=== PATIENT | female | born 1990 | race Caucasian/White ===

== ENCOUNTER 2017-05-22 09:27 | Emergency (ER) | payer OTHER ==
[2017-05-22 09:33] VITALS: BP 117/72; PULSE 89; TEMP 98.1; BMI 28.3
[2017-05-22] MEDS ORDERED: predniSONE 20 MG TABLET (UD) ONE (10:19)
[2017-05-22] MEDS ORDERED: ALBUTEROL SO4 2.5/IPRATROPIUM 0.5 INH SOL 3 ML VIAL.NEB. NEB ONE (10:20)
--- NOTE | 2017-05-22 10:27 | PDOC ---
History of Present Illness - General Chief Complaint: Cold Symptoms Stated Complaint: SICK Time Seen by Provider: 05/22/17 09:46 History Source: Patient Exam Limitations: No Limitations - History of Present Illness Initial Comments: 05/22/17 she came to emergency department today for evaluation of runny nose, head congestion, and moist cough. States has suffered from ALLERGIC rhinitis in the past and feels has having an asthma exacerbation. Has been using her inhaler but cough is persistent. Denies fever, denies purulent mucus, denies any relief with albuterol pump and feels may need some prednisone as has used in the past. Did not Call her physician Severity: reports: mild, moderate Modifying Factors: improves with: albuterol inhaler, albuterol nebulizer Associated Symptoms: reports: chest pain/soreness, cough (x 10 days ), facial pain, fever/chills, headache Past History - Travel Traveled outside of the country in the last 30 days: No Close contact w/someone who was outside of country & ill: No - Past Medical History Allergies/Adverse Reactions: Allergies Allergy/AdvReac Type Severity Reaction Status Date / Time avocado Allergy Verified 05/22/17 09:33 WATERMELON Allergy Severe Swelling Uncoded 05/22/17 09:33 Home Medications: Ambulatory Orders Albuterol 0.083% Nebulizer Annabella [Ventolin 0.083% Nebulizer Soln -] 1 neb NEB Q4H PRN #30 vial 05/22/17 Prednisone [Deltasone -] 20 mg PO BID #8 tablet 05/22/17 Asthma: Yes Cancer: No Cardiac Disorders: No Diabetes: No HTN: No Seizures: No Thyroid Disease: No - Psycho/Social/Smoking Cessation Hx Anxiety: No Suicidal Ideation: No Smoking History: Never smoked Have you smoked in the past 12 months: No Hx Alcohol Use: No Drug/Substance Use Hx: No Substance Use Type: None Hx Substance Use Treatment: No Respiratory Specific PMHX - Complaint Specific PMHX Pneumonia: No Review of Systems - Review of Systems Able to Perform ROS?: Yes Is the patient limited [place] proficient: Yes Constitutional: Yes: Symptoms Reported, See HPI, Loss of Appetite, Malaise. No : Fever HEENTM: Yes: Symptoms Reported, See HPI, Nose Congestion Respiratory: Yes: Symptoms reported, See HPI, Cough, Shortness of Breath, Wheezing : Yes: Symptoms Reported Musculoskeletal: Yes: Symptoms Reported Integumentary: Yes: Symptoms Reported, See HPI All Other Systems: Reviewed and Negative *Physical Exam - Vital Signs Last Vital Signs Temp Pulse Resp BP Pulse Ox 98.1 F 89 20 117/72 100 05/22/17 09:30 05/22/17 09:30 05/22/17 09:30 05/22/17 09:30 05/22/17 09:30 - Physical Exam General Appearance: Yes: Nourished, Appropriately Dressed, Apparent Distress, Mild Distress HEENT: positive: [place], Normal ENT Inspection, TMs Normal (congested but landmarks easily visualized ), Pharynx Normal (no redness, swelling or exudate noted, some posterior sinus drainage that was clear), Rhinorrhea, Sinus Tenderness Neck: positive: Supple. negative: Tender, Lymphadenopathy (R), Lymphadenopathy (L) Respiratory/Chest: positive: Lungs Clear, Normal Breath Sounds, Wheezing (but coarse ) Musculoskeletal: positive: Normal Inspection Extremity: positive: Normal Capillary Refill, Normal Inspection, Normal Range of Motion Integumentary: positive: Dry, Warm, Pale Neurologic: positive: tenoner operator II-XII NML intact, Fully Oriented, Alert, Normal Mood/ Affect, Normal Response, Motor Strength 5/5 Progress Note - Progress Note Progress Note: Much improved after 60 mg of prednisone and 2 DuoNeb, *DC/Admit/Observation/Transfer Diagnosis at time of Disposition: Allergic rhinitis Qualifiers: Chronicity: acute Allergic rhinitis trigger: unspecified Allergic rhinitis seasonality: unspecified seasonality Qualified Code(s): J30.9 - Allergic rhinitis, unspecified - Discharge Dispostion Disposition: HOME Condition at time of disposition: Stable Admit: No - Prescriptions Prescriptions: Prednisone [Deltasone -] 20 mg PO BID #8 tablet Albuterol 0.083% Nebulizer Annabella [Ventolin 0.083% Nebulizer Soln -] 1 neb NEB Q4H PRN #30 vial PRN Reason: Cough - Patient Instructions Printed Discharge Instructions: DI for Allergic Rhinitis Additional Instructions: Rest, drink lots of fluids: Teas, water, soups Saltwater gargles. Consider humidifier in room at night Steamy showers/seem to face break up mucus Avoid contact with allergens, exposure to pollens, close windows on a windy day Lots of handwashing and good hygiene Continue [id number] medications for symptomatic relief- may use allergic eyedrops for itching I Continue antihistamines daily until pollen season is over; Zyrtec, Claritin, Michelle during the daytime and Benadryl at nighttime as will make sleepy Tylenol or Motrin for fever and pain Continue nebulizers every 4-6 hours for 2 days then as needed Prednisone 40 mg daily for the next 4 days Followup with private physician in one to 2 days Consider following up with an spring assembler supervisor/jewelry sales for skin testing and possible allergy shots Return to emergency department for worsened symptoms, fevers, dehydration - Post Discharge Activity Work/School Note: Back to Work
== END 2017-05-22 11:12 | disposition home or self-care (01) ==
LOC: JERFT 09:27
PROC: 3E0F7GC Introduction of Other Therapeutic Substance into Respiratory Tract, Via Natural or Artificial Opening (ICD-10-PCS; principal; 2017-05-22)
PROC: 3E0F7GC Introduction of Other Therapeutic Substance into Respiratory Tract, Via Natural or Artificial Opening (ICD-10-PCS; 2017-05-22)
DX: J30.9 Allergic rhinitis, unspecified (principal); J00 Acute nasopharyngitis [common cold]; J30.89 Other allergic rhinitis; J45.909 Unspecified asthma, uncomplicated
CPT/HCPCS: 94640; 99281-25

== ENCOUNTER 2017-06-04 09:43 | Emergency (ER) | payer OTHER ==
[2017-06-04 09:50] VITALS: BP 120/79; PULSE 75; TEMP 97.9; BMI 27.8
--- NOTE | 2017-06-04 10:19 | PDOC ---
History of Present Illness - General Chief Complaint: Cold Symptoms Stated Complaint: LIGHTHEADED Time Seen by Provider: 06/04/17 09:55 History Source: Patient Exam Limitations: No Limitations - History of Present Illness Initial Comments: 06/04/17 10:15 26 YR FEMALE HISTORYOF ASTHMA presents with cough and post nasal drip. no fever no SOB no chest pain. Past History - Past Medical History Allergies/Adverse Reactions: Allergies Allergy/AdvReac Type Severity Reaction Status Date / Time avocado Allergy Verified 06/04/17 09:50 WATERMELON Allergy Severe Swelling Uncoded 06/04/17 09:50 Home Medications: Ambulatory Orders Benzonatate [Tessalon Pearls -] 100 mg PO TID PRN #21 capsule 06/04/17 Fluticasone Prop 0.05% Nasal [Flonase -] 1 - 2 spray NS DAILY #1 spray.pump 03/18 Asthma: Yes Cancer: No Cardiac Disorders: No Diabetes: No HTN: No Seizures: No Thyroid Disease: No - Psycho/Social/Smoking Cessation Hx Anxiety: No Suicidal Ideation: No Smoking History: Never smoked Have you smoked in the past 12 months: No Hx Alcohol Use: No Drug/Substance Use Hx: No Substance Use Type: None Hx Substance Use Treatment: No Respiratory Specific PMHX - Complaint Specific PMHX Pneumonia: No *Physical Exam - Vital Signs Last Vital Signs Temp Pulse Resp BP Pulse Ox 97.9 F 75 18 120/79 100 06/04/17 09:48 06/04/17 09:48 06/04/17 09:48 06/04/17 09:48 06/04/17 09:48 - Physical Exam General Appearance: Yes: Nourished, Appropriately Dressed HEENT: positive: EOMI, [place], TMs Normal Neck: positive: Supple Respiratory/Chest: positive: Lungs Clear, Normal Breath Sounds. negative: Chest Tender, Crackles, Rales, Wheezing, Hyperresonant Cardiovascular: positive: Regular Rhythm, Regular Rate *DC/Admit/Observation/Transfer Diagnosis at time of Disposition: Allergic rhinitis Qualifiers: Chronicity: chronic Allergic rhinitis trigger: pollen Allergic rhinitis seasonality: seasonal Qualified Code(s): J30.1 - Allergic rhinitis due to pollen - Discharge Dispostion Disposition: HOME Condition at time of disposition: Good - Prescriptions Prescriptions: Fluticasone Prop 0.05% Nasal [Flonase -] 1 - 2 spray NS DAILY #1 spray.pump Benzonatate [Tessalon Pearls -] 100 mg PO TID PRN #21 capsule PRN Reason: Cough - Referrals Referrals: Sheela Schmitt [Primary Care Provider] - Stuart Prieto MD [Staff Physician] - Eder [place] MD [Staff Physician] - - Patient Instructions Additional Instructions: drink pleanty of water use flonase as directed take tessalon for cough as needed use your ventolin inhaler for any wheezing follow with the ENT doctor or with the pulmonary doctor Dr. Prieto for follow up and management of your asthma symptoms
== END 2017-06-04 10:28 | disposition home or self-care (01) ==
LOC: JERFT 09:43
DX: J30.89 Other allergic rhinitis (principal)
CPT/HCPCS: 99281-25

== ENCOUNTER 2018-04-25 16:18 | Emergency (ER) | payer OTHER ==
[2018-04-25 16:29] VITALS: BMI 29.2
--- NOTE | 2018-04-25 16:31 | PDOC ---
Rapid Medical Evaluation Chief Complaint: Pain, Acute Time Seen by Provider: 04/25/18 16:25 Medical Evaluation: Allergies Allergy/AdvReac Type Severity Reaction Status Date / Time avocado Allergy Verified 04/25/18 16:24 WATERMELON Allergy Severe Swelling Uncoded 04/25/18 16:24 04/25/18 16:26 I have performed a brief in-person evaluation of this patient. The patient presents with a chief complaint of: Pelvic pain w/ fever of 104.3 since yesterday, took tylenol. No sig pmhx Pertinent physical exam findings:Febrile to w/ HR of 130 w/ sig ttp lower abd diffusely I have ordered the following: Labs The patient will proceed to the ED for further evaluation 04/25/18 16:29 Discharge Disposition - Diagnosis Abdominal pain Qualifiers: Abdominal location: unspecified location Qualified Code(s): R10.9 - Unspecified abdominal pain - Referrals Referrals: Sheela Schmitt [Primary Care Provider] - - Patient Instructions - Post Discharge Activity
[2018-04-25 17:00] LABS: HEMATOCRIT 36.8 % (32.4-45.2); HEMOGLOBIN 12.3 GM/dL (10.7-15.3); MCH 31.2 pg (25.7-33.7); MCHC 33.3 g/dl (32.0-36.0); MEAN CELL VOLUME 93.8 fl (80-96); MEAN PLT VOLUME 8.6 fl (7.5-11.1); PLATELET COUNT 284 K/MM3 (134-434); RBC 3.93 M/mm3 (3.60-5.2); RDW 13.7 % (11.6-15.6); WHITE BLOOD COUNT 22.7 K/mm3 (4.0-10.0)
[2018-04-25] MEDS ORDERED: SODIUM CHLORIDE 1,000 ML IV STA ×2 (17:05→19:47)
[2018-04-25] MEDS ORDERED: ACETAMINOPHEN 1000 MG/100 ML VIAL (NON FORMULARY) IVPB ONE (17:06)
--- NOTE | 2018-04-25 17:09 | PDOC ---
History of Present Illness <Martha Chacon - Last Filed: 04/25/18 18:05> - History of Present Illness Initial Comments: 04/25/18 18:09 The patient is a 27 year old female with no significant PMH who presents for evaluation of lower abdominal pain and fevers. The patient reports a 1 day history of fevers to 104 with associated lower abdominal pain that she describes as a pressure. She reports worsening abdominal pain and generalized body aches prompting her presentation to the ED for further evaluation. She notes increased frequency in urination as well as dysuria, but otherwise denies SOB, chest pain, nausea, vomiting, vaginal bleeding, vaginal discharge, or changes with bowel movements. <AmparoPablo - Last Filed: 04/25/18 23:33> - General Chief Complaint: Pain, Acute Stated Complaint: ABD PAIN Time Seen by Provider: 04/25/18 16:25 Past History <Martha Chacon - Last Filed: 04/25/18 18:05> - Past Medical History Asthma: Yes Cancer: No Cardiac Disorders: No COPD: No Diabetes: No HTN: No Seizures: No Thyroid Disease: No - Immunization History Immunization Up to Date: Yes - Suicide/Smoking/Psychosocial Hx Smoking History: Never smoked Have you smoked in the past 12 months: No Hx Alcohol Use: No Drug/Substance Use Hx: No Substance Use Type: None Hx Substance Use Treatment: No <Pablo Christensen - Last Filed: 04/25/18 23:33> - Past Medical History Allergies/Adverse Reactions: Allergies Allergy/AdvReac Type Severity Reaction Status Date / Time avocado Allergy Verified 04/25/18 16:24 WATERMELON Allergy Severe Swelling Uncoded 04/25/18 16:24 Home Medications: Ambulatory Orders Doxycycline Hyclate 100 mg PO BID #20 tablet 04/25/18 Review of Systems - Review of Systems Comments:: 04/25/18 18:57 Constitutional: Fevers, Body aches, Fatigue HEENT: No Rhinorrhea, nasal congestion, visual changes Cardiovascular: No chest pain, syncope, palpitations, lightheadedness Respiratory: No Cough, SOB, Hemoptysis, Gastrointestinal: Abdominal pain. No Nausea, Vomiting, Constipation, Diarrhea, Melena Genitourinary: Dysuria, Increased Frequency. No Urgency, Hesitancy, Hematuria, Flank pain, Vaginal bleeding, Vaginal discharge Musculoskeletal: No Myalgia, arthralgia Skin: No rashes, itching, bruising, pallor Neurologic: No Headache, Dizziness, Numbness, Weakness, or Tingling Psychiatric: No Hallucinations. No SI or HI <Pablo Christensen - Last Filed: 04/25/18 23:33> *Physical Exam - Vital Signs Last Vital Signs Temp Pulse Resp BP Pulse Ox 100.1 F H 132 H 20 96/51 100 04/25/18 16:25 04/25/18 16:25 04/25/18 16:25 04/25/18 16:25 04/25/18 16:25 <HernanMartha tadeo - Last Filed: 04/25/18 18:05> - Vital Signs Last Vital Signs Temp Pulse Resp BP Pulse Ox 100.1 F H 132 H 20 96/51 100 04/25/18 16:25 04/25/18 16:25 04/25/18 16:25 04/25/18 16:25 04/25/18 16:25 - Physical Exam Comments: 04/25/18 18:59 General Appearance: Nourished. No Apparent Distress HEENT: EOMI, [place]. No Pharyngeal Erythema, Tonsillar Exudate, Tonsillar Erythema Neck: No Cervical Lymphadenopathy Respiratory/Chest: Lungs Clear, Normal Breath Sounds. No Crackles, Rales, Rhonchi, Wheezing Cardiovascular: Regular Rhythm, Regular Rate. No Murmur, Gallops, Rubs Gastrointestinal/Abdominal: Normal Bowel Sounds, Soft. Tenderness to palpation in the suprapubic and RLQ regions. No Guarding, Rebound, Genital Exam: Normal external exam, white discharged noted. No CMT. Right adenexal tenderness noted on exam. Musculoskeletal: No CVA Tenderness Extremity: Normal Capillary Refill Integumentary: Normal Color, Dry, Warm Neurologic: Fully Oriented, Alert, Normal Mood/Affect, Normal Response, <Pablo Christensen - Last Filed: 04/25/18 23:33> ED Treatment Course - LABORATORY CBC & Chemistry Diagram: 04/25/18 16:51 04/25/18 16:51 - ADDITIONAL ORDERS Additional order review: Laboratory Results 04/25/18 04/25/18 04/25/18 16:51 16:51 16:51 Sodium 136 Potassium 3.7 Chloride 103 Carbon Dioxide 25 Anion Gap 8 BUN 12 Creatinine 0.9 Creat Clearance w eGFR > 60 Random Glucose 121 H Calcium 8.8 Total Bilirubin 0.5 D AST 15 ALT 12 Alkaline Phosphatase 113 Total Protein 7.5 Albumin 4.1 Lipase 95 Urine Color Ltyellow Urine Appearance Clear Urine pH 8.0 D Ur Specific [place] 1.010 Urine Protein Negative Urine Glucose (UA) Negative Urine Ketones Negative Urine Blood 2+ H Urine Nitrite Negative Urine Bilirubin Negative Urine Urobilinogen Negative Ur Leukocyte Esterase 1+ H Urine WBC (Auto) 7 Urine RBC (Auto) 6 Ur Epithelial Cells Few Urine HCG, Qual Negative 04/25/18 16:51 RBC 3.93 D MCV 93.8 MCHC 33.3 RDW 13.7 MPV 8.6 D Neutrophils % No Result Required. Lymphocytes % No Result Required. - Medications Given in the ED: ED Medications Discontinued Medications Generic Name Dose Route Start Last Admin Trade Name Freq PRN Reason Stop Dose Admin Acetaminophen 1,000 mg 04/25/18 17:06 04/25/18 17:23 Ofirmev Injection - IVPB 04/25/18 17:07 1,000 mg ONCE ONE Administration Sodium Chloride 1,000 mls @ 1,000 mls/hr 04/25/18 17:05 04/25/18 17:23 Normal Saline - IV 04/25/18 18:04 1,000 mls/hr ASDIR STA Administration <Martha Chacon - Last Filed: 04/25/18 18:05> - LABORATORY CBC & Chemistry Diagram: 04/25/18 16:51 04/25/18 16:51 <Pablo Christensen - Last Filed: 04/25/18 23:33> *DC/Admit/Observation/Transfer <Martha Chacon - Last Filed: 04/25/18 18:05> - Discharge Dispostion Decision to Admit order: No <Pablo Christensen - Last Filed: 04/25/18 23:33> Diagnosis at time of Disposition: Abdominal pain Qualifiers: Abdominal location: unspecified location Qualified Code(s): R10.9 - Unspecified abdominal pain - Discharge Dispostion Disposition: HOME Condition at time of disposition: Stable - Prescriptions Prescriptions: Doxycycline Hyclate 100 mg PO BID #20 tablet - Referrals Referrals: Sheela Schmitt [Primary Care Provider] - - Patient Instructions Printed Discharge Instructions: DI for Abdominal Pain-Adult Additional Instructions: Please return to the ER if you experience concerning or worsening symptoms including worsening abdominal pain, fevers, chills, vomiting. Your lab results were normal here in the ER. We have sent a prescription to your pharmacy that you should take twice a day for the next 10 days. It is important that you call to schedule a follow up appointment with your primary care provider within 2-3 days to discuss your ER visit and further management of your symptoms. - Post Discharge Activity
[2018-04-25 17:23] LABS: URINE APPEARANCE CLEAR; URINE BILIRUBIN NEGATIVE (<2.0 mg/dL); URINE COLOR LTYELLOW; URINE GLUCOSE (UA) NEGATIVE (NEGATIVE); URINE KETONE NEGATIVE (NEGATIVE); URINE NITRITE NEGATIVE (NEGATIVE); URINE PROTEIN NEGATIVE (NEGATIVE); URINE UROBILINOGEN NEGATIVE mg/dL (0.2-1.0)
[2018-04-25 17:25] LABS: HCG,QUALITATIVE URINE NEGATIVE
[2018-04-25 17:26] LABS: URINE LEUK ESTERASE 1+ (NEGATIVE)
[2018-04-25 17:28] LABS: EPI CELLS FEW /HPF (FEW)
[2018-04-25 17:38] LABS: ALBUMIN 4.1 g/dl (3.4-5.0); ALK PHOS 113 U/L (45-117); ANION GAP 8 (8-16); BILIRUBIN,TOTAL 0.5 mg/dL (0.2-1.0); BLOOD UREA NITROGEN 12 mg/dL (7-18); CALCIUM 8.8 mg/dL (8.5-10.1); CHLORIDE 103 mmol/L (98-107); CO2 25 mmol/L (21-32); CREATININE 0.9 mg/dL (0.55-1.02); GLUCOSE,RANDOM 121 mg/dL (74-106); POTASSIUM 3.7 mmol/L (3.5-5.1); SGOT/AST 15 U/L (15-37); SGPT/ALT 12 U/L (12-78); SODIUM 136 mmol/L (136-145); TOT PROT 7.5 g/dl (6.4-8.2)
--- NOTE | 2018-04-25 18:09 | PDOC ---
Attending Attestation - Resident Resident Name: Pablo Christesnen - ED Attending Attestation I have performed the following: I have examined & evaluated the patient, The case was reviewed & discussed with the resident, I agree w/resident's findings & plan, Exceptions are as noted - HPI HPI: 04/25/18 18:15 The patient is a 27 year old female with no significant past medical history who presents to the emergency department for evaluation of lower abdominal pain and fever. The patient reports a 1 day history of worsening lower abdominal pain. She reports suprapubic pain radiating to her RLQ. The patient reports having a fever with T Max of 104 yesterday with associated generalized body aches. She also reports associated symptoms of dysuria and urinary frequency. She denies any vaginal bleeding or abnormal discharge. The patient reports taking tylenol with mild alleviation to symptoms. Pt is sexually active with her only. The patient denies chest pain, shortness of breath, headache, and dizziness. Denies chills, nausea, vomiting, diarrhea, constipation, urinary urgency, and hematuria. Allergies: Avocado, watermelon Past surgical history: , T/A Social history: No reported cigarette, alcohol, or drug use. PCP: Dr. Sheela Schmitt ([phone]) - Physicial Exam PE: 04/25/18 18:16 GENERAL: Awake, alert, and fully oriented, in no acute distress. HEAD: No signs of trauma EYES: PERRLA, EOMI, sclera anicteric, conjunctiva clear ENT: Auricles normal inspection, hearing grossly normal, nares patent, oropharynx clear without exudates. Moist mucosa NECK: Normal ROM, supple, no lymphadenopathy, JVD, or masses LUNGS: Breath sounds equal, clear to auscultation bilaterally. No wheezes, and no crackles HEART: Regular rate and rhythm, normal S1 and S2, no murmurs, rubs or gallops ABDOMEN: Soft, +RLQ ttp, normoactive bowel sounds. No guarding, no rebound. No masses. No CVAT PELVIC: white thick DC in vaginal vault, +R adnexal ttp, negative CMT, no L adnexal ttp EXTREMITIES: Normal range of motion, no edema. No clubbing or cyanosis. No cords , erythema, or tenderness BACK: No midline spinal tenderness in cervical/thoracic/lumbar region NEUROLOGICAL: Normal speech, cranial nerves intact, negative pronator drift, 5/ 5 strength in all 4 extremities, normal sensation to light touch in all 4 extremities, normal cerebellar exam, normal gait, normal reflexes and tone SKIN: Warm, Dry, normal turgor, no rashes or lesions noted. - Medical Decision Making 04/25/18 18:08 27yo F presents to the ED with 1 day of suprapubic and RLQ pain a/w fevers. Vitals remarkable for fever and tachycardia. Exam with RLQ and R adnexal ttp. DDx wide and includes but not limited to appy vs TOA vs PID vs pyelonephritis. Plan: -labs -antipyretics -TVUS -CTAP -pain control -reassess
[2018-04-25 18:46] LABS: PLATELET ESTIMATE ADEQUATE
[2018-04-25 19:50] VITALS: BP 90/52; PULSE 84; TEMP 98.3
[2018-04-25] MEDS ORDERED: AZITHROMYCIN 1 GM PACKET PO ONE (23:18)
[2018-04-25] MEDS ORDERED: DOXYCYCLINE HYCLATE 100 MG CAPSULE PO ONE ×2 (23:19→23:25)
[2018-04-25] MEDS ORDERED: cefTRIAXone SODIUM 1 GM VIAL ONE (23:26)
[2018-04-25] MEDS ORDERED: LIDOCAINE HCL 1%, 10 MG/ML (20ML VIAL) ONE (23:27)
[2018-04-25] MEDS ORDERED: AZITHROMYCIN 250 MG TABLET ONE (23:36)
== END 2018-04-25 23:40 | disposition home or self-care (01) ==
LOC: JER 16:18
PROC: 3E0337Z Introduction of Electrolytic and Water Balance Substance into Peripheral Vein, Percutaneous Approach (ICD-10-PCS; principal; 2018-04-25)
PROC: 3E033NZ Introduction of Analgesics, Hypnotics, Sedatives into Peripheral Vein, Percutaneous Approach (ICD-10-PCS; 2018-04-25)
PROC: 3E02329 Introduction of Other Anti-infective into Muscle, Percutaneous Approach (ICD-10-PCS; 2018-04-25)
DX: N73.8 Other specified female pelvic inflammatory diseases (principal)
CPT/HCPCS: 36415; 74177-TC; 76856-TC; 80053; 81003; 81015; 83690; 84703; 85025; 87491; 87591; 96361; 96372; 96374; 99283-25; J0131; J7030

== ENCOUNTER 2019-10-13 17:54 | Emergency (ER) | payer OTHER ==
[2019-10-13 18:04] VITALS: TEMP 98; BMI 31.7
--- NOTE | 2019-10-13 18:04 | PDOC ---
Rapid Medical Evaluation Time Seen by Provider: 10/13/19 18:01 Medical Evaluation: Allergies Allergy/AdvReac Type Severity Reaction Status Date / Time avocado Allergy Verified 04/25/18 16:24 WATERMELON Allergy Severe Swelling Uncoded 04/25/18 16:24 10/13/19 18:01 I have performed a brief in-person evaluation of this patient. The patient presents with a chief complaint of: , 17 weeks sharp pain to L abdomen, + discharge, denies bleeding, LMP 06/15 Pertinent physical exam findings: LLQ tenderness I have ordered the following: labs, urine, US The patient will proceed to the ED for further evaluation. Discharge Disposition - Diagnosis Abdominal pain during - Referrals - Patient Instructions - Post Discharge Activity
[2019-10-13] MEDS ORDERED: ACETAMINOPHEN 325 MG TABLET (FP) PO ONE (18:17)
[2019-10-13] MEDS ORDERED: ACETAMINOPHEN 325 MG TABLET (FP) ONE (18:24)
--- NOTE | 2019-10-13 18:29 | PDOC ---
History of Present Illness - General Chief Complaint: Pain Stated Complaint: 17 WKS /PAIN Time Seen by Provider: 10/13/19 18:01 History Source: Patient Exam Limitations: No Limitations Past History - Past Medical History Allergies/Adverse Reactions: Allergies Allergy/AdvReac Type Severity Reaction Status Date / Time avocado Allergy Verified 10/13/19 18:04 WATERMELON Allergy Severe Swelling Uncoded 10/13/19 18:04 Home Medications: Ambulatory Orders Doxycycline Hyclate 100 mg PO BID #20 tablet 04/25/18 Asthma: Yes Cancer: No Cardiac Disorders: No COPD: No Diabetes: No HTN: No Seizures: No Thyroid Disease: No - Immunization History Immunization Up to Date: Yes - Psycho Social/Smoking Cessation Hx Smoking History: Never smoked Have you smoked in the past 12 months: No Hx Alcohol Use: No Drug/Substance Use Hx: No Substance Use Type: None Hx Substance Use Treatment: No *Physical Exam - Vital Signs Last Vital Signs Temp Pulse Resp BP Pulse Ox 98 F 93 H 18 99/56 L 100 10/13/19 18:01 10/13/19 18:01 10/13/19 18:01 10/13/19 18:01 10/13/19 18:01 - Physical Exam General Appearance: No: Apparent Distress Respiratory/Chest: positive: Lungs Clear, Normal Breath Sounds. negative: Respiratory Distress Cardiovascular: positive: Regular Rhythm, Regular Rate, S1, S2. negative: Murmur Female Pelvic Exam: positive: adnexal tenderness (mild along L side) Gastrointestinal/Abdominal: positive: Tender (mild along LLQ), Soft. negative: Distended, Guarding Musculoskeletal: negative: CVA Tenderness Neurologic: positive: Alert Medical Decision Making - Medical Decision Making 29 y/o F currently 17 weeks 4 days presents with sharp LLQ abd pain x 1 week. Has tried Tylenol without relief of pain. Denies fever, sob, cp, n/v/d, dysuria, hematuria, vaginal bleeding. Patient's OB is Dr. Cunha from [address] [place] [address]; last eval was Sep 25 during which ultrasound was done and everything was normal. Denies prior abdominal surgeries Less likely ectopic, miscarriage Consider round ligament pain? UTI? Plan: UA, Pelvic ultrasound, Tylenol 10/13/19 18:29 UA negative Pending results of ultrasound Patient signed out to [facility] 10/13/19 18:57 Discharge - Discharge Information Problems reviewed: Yes Clinical Impression/Diagnosis: Abdominal pain during Qualifiers: Trimester: second trimester Qualified Code(s): O26.892 - Other specified related conditions, second trimester; R10.9 - Unspecified abdominal pain - Follow up/Referral - Patient Discharge Instructions - Post Discharge Activity
[2019-10-13 18:41] LABS: EPI CELLS 5.3 /HPF (0-5/HPF); HYALINE CASTS 1 /lpf (0-8); URINE APPEARANCE CLEAR; URINE BACTERIA 70.5 /hpf (NEGATIVE); URINE BILIRUBIN NEGATIVE (NEGATIVE); URINE COLOR YELLOW; URINE GLUCOSE (UA) NEGATIVE (NEGATIVE); URINE KETONE NEGATIVE (NEGATIVE); URINE LEUK ESTERASE 2+ (NEGATIVE); URINE NITRITE NEGATIVE (NEGATIVE); URINE PROTEIN NEGATIVE (NEGATIVE); URINE RBC 2 /hpf (0-4); URINE UROBILINOGEN 0.2 mg/dL (0.2-1.0); URINE WBC 4 /hpf (0-5)
--- NOTE | 2019-10-13 19:37 | PDOC ---
*Physical Exam - Vital Signs Last Vital Signs Temp Pulse Resp BP Pulse Ox 98 F 93 H 18 99/56 L 100 10/13/19 18:01 10/13/19 18:01 10/13/19 18:01 10/13/19 18:01 10/13/19 18:01 - Physical Exam General Appearance: Yes: Appropriately Dressed Cardiovascular: positive: Regular Rate Gastrointestinal/Abdominal: positive: Normal Bowel Sounds, Soft, Other (gravid abdomen, left adnexal tenderness) Extremity: positive: Normal Capillary Refill, Normal Inspection, Normal Range of Motion Integumentary: positive: Normal Color, Dry, Warm Neurologic: positive: Fully Oriented, Alert, Normal Mood/Affect ED Treatment Course - ADDITIONAL ORDERS Additional order review: Laboratory Results 10/13/19 18:25 Urine Color Yellow Urine Appearance Clear Urine pH 6.0 D Ur Specific [place] 1.014 Urine Protein Negative Urine Glucose (UA) Negative Urine Ketones Negative Urine Blood Trace Urine Nitrite Negative Urine Bilirubin Negative Urine Urobilinogen 0.2 Ur Leukocyte Esterase 2+ H Urine WBC (Auto) 4 Urine RBC (Auto) 2 Urine Casts (Auto) 1 U Epithel Cells (Auto) 5.3 Urine Bacteria (Auto) 70.5 - Medications Given in the ED: ED Medications Discontinued Medications Generic Name Dose Route Start Last Admin Trade Name Freq PRN Reason Stop Dose Admin Acetaminophen 975 mg 10/13/19 18:17 10/13/19 18:31 Tylenol - PO 10/13/19 18:18 975 mg ONCE ONE Administration Medical Decision Making - Medical Decision Making 10/13/19 19:54 UA + 2 leuks with bacteria. will empirically treat. patient has an appt with ingot caster next week, advised to follow up . denies urinary symptoms patient reports Dyspareunia, advised for pelvic rest until cleared by OB Discharge - Discharge Information Problems reviewed: Yes Clinical Impression/Diagnosis: Abdominal pain during Qualifiers: Trimester: second trimester Qualified Code(s): O26.892 - Other specified related conditions, second trimester UTI (urinary tract infection) Qualifiers: Urinary tract infection type: acute cystitis Disposition: HOME - Additional Discharge Information Prescriptions: Cephalexin Monohydrate [Keflex -] 500 mg PO BID #14 capsule - Follow up/Referral - Patient Discharge Instructions Patient Printed Discharge Instructions: Urinary Tract Infection Additional Instructions: drink plenty of fluids take cephalexin as prescribed, follow up with your doctor as soon as possible. - Post Discharge Activity Work/Back to School Note: Back to Work
[2019-10-13 20:06] VITALS: BP 109/64; PULSE 86
== END 2019-10-13 20:00 | disposition home or self-care (01) ==
LOC: JER 17:54
DX: O26.892 Other specified pregnancy related conditions, second trimester (principal); O23.12 Infections of bladder in pregnancy, second trimester; N30.00 Acute cystitis without hematuria; Z3A.17 17 weeks gestation of pregnancy; Z91.018 Allergy to other foods
CPT/HCPCS: 76815-TC; 81003; 99283-25

== ENCOUNTER 2019-12-09 11:08 | Emergency (ER) | payer OTHER ==
[2019-12-09 11:27] VITALS: BMI 32.3
[2019-12-09] MEDS ORDERED: AZITHROMYCIN 250 MG TABLET PO ONE (12:46)
[2019-12-09] MEDS ORDERED: AZITHROMYCIN 250 MG TABLET ONE (12:53)
--- NOTE | 2019-12-09 13:00 | PDOC ---
History of Present Illness - General Chief Complaint: Cold Symptoms Stated Complaint: COLD SYS Time Seen by Provider: 12/09/19 11:46 History Source: Patient Exam Limitations: No Limitations Past History - Past Medical History Allergies/Adverse Reactions: Allergies Allergy/AdvReac Type Severity Reaction Status Date / Time avocado Allergy Severe Swelling Verified 11/16/19 16:09 [place] Allergy Severe Swelling Uncoded 11/16/19 16:09 Home Medications: Ambulatory Orders Vit 93/Iron Fum/Folic [ Formula Tablet] 1 each PO DAILY Azithromycin [Zithromax 250mg Tablets -] 250 mg PO UTDICT #6 tab 12/09/19 Asthma: Yes Cancer: No Cardiac Disorders: No COPD: No Diabetes: No HTN: No Seizures: No Thyroid Disease: No - Immunization History Immunization Up to Date: Yes - Psycho Social/Smoking Cessation Hx Smoking History: Never smoked Have you smoked in the past 12 months: No Information on smoking cessation initiated: No Hx Alcohol Use: No Drug/Substance Use Hx: No Substance Use Type: None Hx Substance Use Treatment: No Respiratory Specific PMHX - Complaint Specific PMHX Hx Pneumonia: No *Physical Exam - Vital Signs Last Vital Signs Temp Pulse Resp BP Pulse Ox 98.3 F 96 H 17 91/53 L 99 12/09/19 11:20 12/09/19 11:20 12/09/19 11:20 12/09/19 11:20 12/09/19 11:20 - Physical Exam General Appearance: No: Apparent Distress HEENT: positive: Nasal Congestion. negative: Muffled/Hoarse voice, Pharyngeal Erythema, Tonsillar Exudate, Tonsillar Erythema, Rhinorrhea, Sinus Tenderness Respiratory/Chest: positive: Lungs Clear, Normal Breath Sounds. negative: Respiratory Distress Cardiovascular: positive: Regular Rhythm, Regular Rate, S1, S2. negative: Murmur Gastrointestinal/Abdominal: positive: Other (gravid abdomen) Integumentary: positive: Normal Color Neurologic: positive: Alert ED Treatment Course - RADIOLOGY Radiology Studies Ordered: Category Date Time Status CHEST PA & LAT [RAD] Stat Radiology 12/09/19 12:04 Taken Medical Decision Making - Medical Decision Making 29 y/o F hx of asthma, currently 25 weeks presents with fever, cough, congestion, sore throat, body aches x 1 week. States fever had stopped and that started again last night (states it was around 103). Patient took Tylenol last night. No antipyretics were taken today. +CP only with coughing. Denies sob, abd pain, n/v/d, vaginal bleeding, recent travel. Flu negative CXR wet read negative D/W Dr. Arango - given duration of sxs and fever from yesterday, will start on z- anita Given first dose here Will go to L&D for FHR 12/09/19 12:56 Discharge - Discharge Information Problems reviewed: Yes Clinical Impression/Diagnosis: Viral URI Condition: Poor - Admission No - Additional Discharge Information Prescriptions: Azithromycin [Zithromax 250mg Tablets -] 250 mg PO UTDICT #6 tab Prescription Drug Monitoring Program (I-STOP) results: I-STOP not reviewed - Follow up/Referral - Patient Discharge Instructions Patient Printed Discharge Instructions: DI for Viral Upper Respiratory Infection -- Adult Additional Instructions: Thank you for choosing [facility]. It was a pleasure taking care of you. Recommend rest, hydration You may try saline nebs and humidifier at home Take antibiotics in case this is developing bacterial infection Follow-up with your doctor in 2 days Return to the Emergency Department if your symptoms worsen or persist or have other concerning symptoms. - Post Discharge Activity
[2019-12-09 13:31] VITALS: BP 91/51; PULSE 98; TEMP 98.6
--- NOTE | 2019-12-10 11:52 | EKG ---
Test Reason : Blood Pressure : / mmHG Vent. Rate : 105 BPM Atrial Rate : 105 BPM P-R Int : 134 ms QRS Dur : 078 ms QT Int : 332 ms P-R-T Axes : 060 059 019 degrees QTc Int : 438 ms SINUS TACHYCARDIA NONSPECIFIC T WAVE ABNORMALITY ABNORMAL ECG WHEN COMPARED WITH ECG OF 11-OCT-2016 18:49, NO SIGNIFICANT CHANGE WAS FOUND Confirmed by BAYLEE FERMIN MD ([id number]) on 12/10/2019 11:51:51 AM Referred By: Confirmed By:BAYLEE FERMIN MD
== END 2019-12-09 13:50 | disposition home or self-care (01) ==
LOC: JER 11:08
DX: O99.89 Other specified diseases and conditions complicating pregnancy, childbirth and the puerperium (principal); J06.9 Acute upper respiratory infection, unspecified; Z3A.25 25 weeks gestation of pregnancy; Z91.018 Allergy to other foods
CPT/HCPCS: 71046-TC-FY; 87804; 93005; 93010; 99281-25

== ENCOUNTER 2022-08-11 12:10 | Emergency (ER) | payer OTHER ==
[2022-08-11 12:20] VITALS: BP 97/66; PULSE 77; RESP 18; TEMP 97.8; BMI 27.8
[2022-08-11 14:29] LABS: BASO % 0.7 % (0-2.0); EOS % 1.9 % (0-4.5); HEMATOCRIT 38.9 % (32.4-45.2); LYMPH % 27.2 % (8-40); MCH 31.6 pg (25.7-33.7); MCHC 33.4 g/dl (32.0-36.0); MEAN CELL VOLUME 94.7 fl (80-96); MEAN PLT VOLUME 8.7 fl (7.5-11.1); NEUT % 64.2 % (42.8-82.8); PLATELET COUNT 385 10^3/uL (134-434); RBC 4.11 M/mm3 (3.60-5.2); RDW 13.9 % (11.6-15.6)
[2022-08-11 14:40] LABS: EPI CELLS 13 /uL (0-25.1); HCG,QUALITATIVE URINE Negative; HYALINE CASTS 1 /uL (0-3.1); PH,URINE 5.5 (5.0-8.0); URINE APPEARANCE CLEAR; URINE BACTERIA 37 /uL (0-1359); URINE BILIRUBIN NEGATIVE (NEGATIVE); URINE COLOR YELLOW; URINE GLUCOSE (UA) NEGATIVE (NEGATIVE); URINE KETONE TRACE (NEGATIVE); URINE LEUK ESTERASE NEGATIVE (NEGATIVE); URINE NITRITE NEGATIVE (NEGATIVE); URINE PROTEIN TRACE (NEGATIVE); URINE RBC 133 /uL (0-23.9); URINE WBC 8 /uL (0-25.8)
[2022-08-11 14:49] LABS: ALBUMIN 4.1 g/dl (3.4-5.0); CALCIUM 9.2 mg/dL (8.5-10.1)
[2022-08-11 14:50] LABS: BLOOD UREA NITROGEN 12.8 mg/dL (7-18)
[2022-08-11 14:53] LABS: CREATININE 0.8 mg/dL (0.55-1.3)
[2022-08-11 14:54] LABS: BILIRUBIN,TOTAL 0.4 mg/dL (0.2-1)
[2022-08-11] MEDS ORDERED: KETOROLAC TROMETHAMINE 30 MG/1 ML VIAL IVPUSH ONE (16:44)
== END 2022-08-11 18:48 | disposition home or self-care (01) ==
LOC: JERFT 12:10 → JER 12:10 → JERFT 18:48
DX: N83.291 Other ovarian cyst, right side (principal)
CPT/HCPCS: 36415; 74177-TC; 76830-TC; 80053; 81003; 84703; 85025; 87086; 99285-25; Q9967

== ENCOUNTER 2023-12-11 09:11 | Emergency (ER) | payer OTHER ==
[2023-12-11 09:30] VITALS: BP 131/70; RESP 18; TEMP 98.6; BMI 31.1
[2023-12-11] MEDS ORDERED: ACETAMINOPHEN 500 MG TABLET (FP) PO ONE (10:22)
[2023-12-11] MEDS ORDERED: ACETAMINOPHEN 500 MG TABLET (FP) ONE (10:26)
[2023-12-11 10:49] VITALS: PULSE 77
== END 2023-12-11 10:50 | disposition home or self-care (01) ==
LOC: JERFT 09:11
DX: R05.9 Cough, unspecified (principal); R51.9 Headache, unspecified; R07.0 Pain in throat; R09.81 Nasal congestion; M79.10 Myalgia, unspecified site; R09.3 Abnormal sputum; J01.90 Acute sinusitis, unspecified; Z20.822 Contact with and (suspected) exposure to COVID-19
CPT/HCPCS: 0241U-QW; 99283-25

== ENCOUNTER 2024-10-05 15:42 | Emergency (ER) | payer OTHER ==
[2024-10-05 16:26] VITALS: BP 108/74; PULSE 78; RESP 18; TEMP 98.2; BMI 32.3
[2024-10-05 17:30] LABS: HCG,QUALITATIVE URINE Negative
[2024-10-05 17:31] LABS: EPI CELLS 7 /uL (0-25.1); HYALINE CASTS 0 /uL (0-3.1); URINE APPEARANCE CLEAR; URINE BACTERIA 163 /uL (0-1359); URINE BILIRUBIN NEGATIVE (NEGATIVE); URINE COLOR YELLOW; URINE GLUCOSE (UA) NEGATIVE (NEGATIVE); URINE KETONE NEGATIVE (NEGATIVE); URINE LEUK ESTERASE NEGATIVE (NEGATIVE); URINE NITRITE NEGATIVE (NEGATIVE); URINE PROTEIN NEGATIVE (NEGATIVE); URINE RBC 73 /uL (0-23.9); URINE UROBILINOGEN 0.2 mg/dL (0.2-1.0); URINE WBC 1 /uL (0-25.8)
[2024-10-05] MEDS ORDERED: ACETAMINOPHEN 500 MG TABLET (FP) ONE (18:26)
[2024-10-05] MEDS: ACETAMINOPHEN 500 MG TABLET (FP) PO ONE (18:29)
== END 2024-10-05 20:25 | disposition home or self-care (01) ==
LOC: JER 15:42
DX: R10.2 Pelvic and perineal pain (principal); R10.31 Right lower quadrant pain
CPT/HCPCS: 74176-TC; 76830-TC; 81003; 84703; 87086; 99285-25

== ENCOUNTER 2025-06-23 16:17 | Emergency (ER) | payer OTHER ==
[2025-06-23 16:26] VITALS: BP 102/70; PULSE 99; RESP 20; TEMP 98.3; BMI 34.5
[2025-06-23 17:26] LABS: ABSOLUTE IMMATURE GRANULOCYTES 0.03 x10^3/uL (0.0-0.031); BASOPHILS # 0.06 x10^3/uL (0.01-0.08); EOSINOPHIL % 1.8 % (0.7-5.8); EOSINOPHILS # 0.19 x10^3/uL (0.04-0.36); MCHC 33.6 g/dl (32.2-35.5); MEAN CELL VOLUME 95.8 fl (79.4-94.8); MEAN PLT VOLUME 10.0 fl (9.4-12.3); MONOCYTE # 0.69 x10^3/uL (0.24-0.86); MONOCYTE % 6.4 % (4.7-12.5); RDW 13.6 % (12.1-16.8)
[2025-06-23 17:35] LABS: EPI CELLS 15 /uL (0-25.1); HYALINE CASTS 1 /uL (0-3.1); URINE APPEARANCE CLOUDY; URINE BACTERIA 249 /uL (0-1359); URINE BILIRUBIN NEGATIVE (NEGATIVE); URINE COLOR YELLOW; URINE GLUCOSE (UA) NEGATIVE (NEGATIVE); URINE KETONE TRACE (NEGATIVE); URINE LEUK ESTERASE NEGATIVE (NEGATIVE); URINE NITRITE NEGATIVE (NEGATIVE); URINE PROTEIN TRACE (NEGATIVE); URINE RBC 77 /uL (0-23.9); URINE UROBILINOGEN 1.0 mg/dL (0.2-1.0); URINE WBC 6 /uL (0-25.8)
[2025-06-23 18:07] LABS: CO2 26.0 mmol/L (21-32); GLUCOSE,RANDOM 106.0 mg/dL (74-106)
[2025-06-23 18:10] LABS: CREATININE 0.7 mg/dL (0.55-1.3)
[2025-06-23] MEDS ORDERED: ACETAMINOPHEN 500 MG TABLET (FP) ONE (19:19)
[2025-06-23] MEDS: ACETAMINOPHEN 500 MG TABLET (FP) PO ONE (19:23)
== END 2025-06-23 20:06 | disposition home or self-care (01) ==
LOC: JER 16:17
DX: O03.9 Complete or unspecified spontaneous abortion without complication (principal)
CPT/HCPCS: 36415; 76817-TC; 80048; 81003; 84702; 85025; 87086; 99284-25